=== PATIENT | male | born 1940 | race Caucasian/White ===

== ENCOUNTER 2016-11-13 12:02 | Inpatient (IN) | payer OTHER ==
[2016-11-05 14:24] LABS: ANION GAP 10 mEq/L (8-16); CALCIUM 10.9 mg/dL (8.5-10.4); CARBON DIOXIDE 25 mEq/l (22-31); CHLORIDE 104 mEq/L (97-110); GLOMERULAR FILTRATION RATE > 60; GLUCOSE 153 mg/dL (70-100); SODIUM 139 mEq/L (134-144)
[~2016-11-13 12:02] MED LIST: ROPIVACAINE 0.2% 80 MG, EPINEPHrine 0.2 MG, KETOROLAC TROMETHAMINE 30 MG in BAG 0 ML IU ONE; TRANEXAMIC ACID 3,000 MG in NS 50 ML IRR ONE; TRANEXAMIC ACID 3,000 MG/50 ML BAG IRR ONE; VANCOMYCIN 1 GM VIAL ONE
[2016-11-13] MEDS ORDERED: FAMOTIDINE 20 MG TAB PO ONE (12:34)
[2016-11-13] MEDS ORDERED: DEXAMETHASONE 4 MG/ML VIAL IVP ONE (12:34)
[2016-11-13] MEDS ORDERED: ACETAMINOPHEN 325 MG TAB PO ONE (12:34)
[2016-11-13] MEDS ORDERED: ceFAZolin 2 GM/DEXTROSE 100 ML IV ONE (12:34)
[2016-11-13] MEDS ORDERED: LR 1,000 ML IV ONE (12:42)
--- NOTE | 2016-11-13 13:46 | PDHPUP ---
History & Physical Update H&P update statement: This history and physical update is based on an assessment of the patient which was completed after admission or registration (within 24 hours), but prior to the surgery/procedure. H&P update: H&P reviewed & patient examined, no change in patient's condition since H&P completed
[2016-11-13] MEDS ORDERED: PROPOFOL/EMULSION 500 MG/50 ML BOTTLE IV ONE ×2 (14:26→15:33)
[2016-11-13] MEDS ORDERED: MIDAZOLAM 2 MG/2 ML VIAL ONE (14:26)
[2016-11-13] MEDS ORDERED: DEXAMETHASONE 4 MG/ML VIAL ONE ×2 (14:27)
[2016-11-13] MEDS ORDERED: METOCLOPRAMIDE 10 MG/2 ML VIAL ONE (14:27)
[2016-11-13] MEDS ORDERED: LIDOCAINE 2% 100 MG/5 ML SYR ONE (14:27)
--- NOTE | 2016-11-13 14:33 | PDANEPAE ---
ANE Past Medical History - Cardiovascular History Hx Hypertension: Yes Hx Arrhythmias: No Hx Chest Pain: No Hx Coronary Artery / Peripheral Vascular Disease: No Hx CHF / Valvular Disease: No Hx Palpitations: No Cardiovascular History Comment: pcp monitors bp medications. high chol. family condition that predisposes him to blood clots - Pulmonary History Hx COPD: No Hx Asthma/Reactive Airway Disease: No Hx Recent Upper Respiratory Infection: No Hx Oxygen in Use at Home: No Hx Sleep Apnea: No Sleep Apnea Screening Result - Last Documented: Positive Pulmonary History Comment: eva triggers - Neurologic History Hx Cerebrovascular Accident: No Hx Seizures: No Hx Dementia: No - Endocrine History Hx Diabetes: Yes Endocrine History Comment: type 2 - Renal History Hx Renal Disorders: Yes Renal History Comment: bph. hx of kidney stones - Liver History Hx Hepatic Disorders: No - Neurological & Psychiatric Hx Hx Neurological and Psychiatric Disorders: No - Cancer History Hx Cancer: Yes Cancer History Comment: 2011 breast ca with mastectomy. 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 eye surgery for blinking too much. 1964 surgery on righy knee cartiledge clean up ANE Review of Systems - Exercise capacity METS (RN): 4 METS ANE Patient History - Allergies Allergies/Adverse Reactions: No Known Allergies Allergy (Verified 10/31/16 10:06) - Home Medications Home Medications: Atorvastatin Calcium [Lipitor 20 mg (*)] 20 mg PO DAILY 01/30/12 [Last Taken 03:00] metFORMIN HCL [Glucophage 500 mg (*)] 500 mg PO DAILY 01/30/12 [Last Taken 11/11] Aspirin [Aspirin 325 mg (*)] 162.5 mg PO DAILY 10/24/16 [Last Taken 3 Weeks Ago] Lisinopril [Zestril 10 mg (*)] 10 mg PO Q2D@10/24/16 [Last Taken 11/11/16] Multivitamins [Multivitamin (*)] 1 each PO DAILY 10/24/16 [Last Taken 11/06/16] Tamoxifen Citrate 20 mg PO DAILY 10/24/16 [Last Taken 11/13/16 03:00] - NPO status NPO Since - Liquids (Date): 11/13/16 NPO Since - Liquids (Time): 07:00 NPO Since - Solids (Date): 11/12/16 NPO Since - Solids (Time): 19:00 - Smoking Hx Smoking Status: Never smoked - Family Anes Hx Family Hx Anesthesia Complications: none ANE Labs/Vital Signs - Labs Result Diagrams: 11/05/16 13:32 - Vital Signs Blood Pressure: 158/93 Heart Rate: 79 Respiratory Rate: 16 O2 Sat (%): 92 Height: 180.34 cm Weight: 88.451 kg ANE Physical Exam - Airway Neck exam: FROM Mallampati Score: Class 3 Mouth exam: normal dental/mouth exam - Pulmonary Pulmonary: no respiratory distress - Cardiovascular Cardiovascular: regular rate and rhythym - ASA Status ASA Status: II ANE Anesthesia Plan Anesthesia Plan: spinal Regional Anesthesia: adductor canal FNB
--- NOTE | 2016-11-13 16:14 | POSTOPPROG ---
Post Op Note Date of Operation: 11/13/16 Surgeon: Serg Barnett X Ray Examiner Of Aircraft: Derek Arita Anesthesiologist: Christina Anesthesia: Spinal Pre-op Diagnosis: R knee djd Post-op Diagnosis: same Indication: pain Procedure: R TKA Findings: DJD knee Inf/Abcess present in the surg proc area at time of surgery?: No EBL: 50-100
[2016-11-13] MEDS ORDERED: ONDANSETRON 4 MG/2 ML VIAL IVP PRN ×2 (16:21→16:43)
[2016-11-13] MEDS ORDERED: PROMETHAZINE HCL 25 MG SUPPR PR PRN (16:21)
[2016-11-13] MEDS ORDERED: WARFARIN SODIUM 5 MG TAB PO ONE (16:21)
[2016-11-13] MEDS ORDERED: POLYETHYLENE GLYCOL 3350 17 GM PKT PO PRN (16:21)
[2016-11-13] MEDS ORDERED: PROMETHAZINE HCL 25 MG/ML INJ IVP PRN (16:21)
[2016-11-13] MEDS ORDERED: PHARMACY PAIN CONSULT 1 EA MISC PRN (16:21)
[2016-11-13] MEDS ORDERED: DIPHENOXYLATE/ATROPINE LOMOTIL 1 TAB PO PRN (16:21)
[2016-11-13] MEDS ORDERED: ONDANSETRON DISINTEGRATING 4 MG TAB PO PRN (16:21)
[2016-11-13] MEDS ORDERED: TEMAZEPAM 15 MG CAP PO PRN (16:21)
[2016-11-13] MEDS ORDERED: MAGNESIUM HYDROXIDE 30 ML UDCUP PO PRN (16:21)
[2016-11-13] MEDS ORDERED: BISACODYL 10 MG SUPP PR PRN (16:21)
[2016-11-13] MEDS ORDERED: diphenhydrAMINE 25 MG CAP PO PRN (16:21)
[2016-11-13] MEDS ORDERED: CYCLOBENZAPRINE 10 MG TAB PO PRN (16:21)
[2016-11-13] MEDS ORDERED: LACTULOSE 20 GM/30 ML UDCUP PO PRN (16:21)
[2016-11-13] MEDS ORDERED: METOCLOPRAMIDE 10 MG/2 ML VIAL IVP PRN (16:21)
[2016-11-13] MEDS ORDERED: HYDROCODONE/APAP 5/325 TAB PO PRN (16:43)
[2016-11-13] MEDS ORDERED: LR 500 ML IV PRN (16:43)
[2016-11-13] MEDS ORDERED: fentaNYL 100 MCG/2 ML INJ IVP PRN (16:43)
[2016-11-13] MEDS ORDERED: MEPERIDINE 25 MG/ML SYR IVP PRN (16:43)
[2016-11-13] MEDS ORDERED: NALOXONE HCL 0.4 MG/ML INJ IVP PRN (16:43)
--- NOTE | 2016-11-13 16:44 | POSTANESTH ---
Post Anesthetic Evaluation Cardiovascular Status: Normal, Stable Respiratory Status: Normal, Stable Level of Consciousness/Mental Status: Can Participate in Eval Pain Control: Adequate, Prn Tx Ordered Nausea/Vomiting Control: Adequate, Prn Tx Ordered Complications Possibly Related to Anesthesia: None Noted
[2016-11-13] MEDS: LR 1,000 ML IV SCH (17:31)
[2016-11-13] MEDS: ACETAMINOPHEN 325 MG TAB PO SCH ×2 (17:31→23:34)
[2016-11-13] MEDS: oxyCODONE IR 5 MG TAB PO PRN (21:05)
[2016-11-13] MEDS: FAMOTIDINE 20 MG TAB PO SCH (21:05)
[2016-11-13] MEDS: SENNOSIDES/DOCUSATE SODIUM TAB PO SCH (21:05)
[2016-11-13] MEDS: ceFAZolin 2 GM/DEXTROSE 100 ML IV SCH (21:06)
[2016-11-14] MEDS: LR 1,000 ML IV SCH (01:59)
[2016-11-14] MEDS: ACETAMINOPHEN 325 MG TAB PO SCH ×2 (05:11→11:55)
[2016-11-14] MEDS: ceFAZolin 2 GM/DEXTROSE 100 ML IV SCH (05:11)
[2016-11-14 05:18] LABS: HEMATOCRIT 36.6 % (40.0-51.0); HEMOGLOBIN 12.4 g/dL (13.7-17.5)
[2016-11-14 05:35] LABS: INR 1.41 (0.83-1.16); PROTIME(PATIENT) 17.2 SEC (12.0-15.0)
--- NOTE | 2016-11-14 08:08 | SOAPPROG ---
SOAP Progress Note Assessment/Plan: Assessment: Patient is doing well POD 1 s/p R TKA Pain management: pain is well controlled on oral pain meds. VTE ppx: recommend lovenox x 4 days with bridge to coumadin therapy for 3 weeks , cont ANITA and SCDs Anemia: level is expected initially postop. Asymptomatic. Continue to monitor D/c planning: d/c to home today pending release from PT Plan: 11/14/16 08:07 Objective: Vital Signs Temp Pulse Resp BP Pulse Ox 36.9 C 64 16 102/55 L 97 11/14/16 04:00 11/14/16 04:00 11/14/16 04:00 11/14/16 04:00 11/14/16 04:00 Laboratory Results 11/14/16 04:53 11/05/16 13:32 11/13/16 11/14/16 11/15/16 05:59 05:59 05:59 Intake Total 2016 Output Total 450 Balance 1566 PT 17.2 SEC (12.0-15.0) H 11/14/16 04:53 INR 1.41 (0.83-1.16) H 11/14/16 04:53 ICD10 Worksheet Patient Problems: Problems Problem Status Onset Osteoarthritis of right knee Acute - ICD10 Problem Qualifiers (1) Osteoarthritis of right knee Qualifiers: Osteoarthritis type: O
[2016-11-14 08:09] VITALS: BP 142/77; PULSE 56; RESP 14; TEMP 97.6; O2SAT 95
[2016-11-14] MEDS ORDERED: metFORMIN HCL 500 MG TAB PO SCH (09:00)
[2016-11-14] MEDS ORDERED: TAMOXIFEN CITRATE 10 MG TAB PO SCH (09:00)
[2016-11-14] MEDS ORDERED: ATORVASTATIN CALCIUM 20 MG TAB PO SCH (09:00)
[2016-11-14] MEDS ORDERED: ENOXAPARIN 40 MG/0.4 ML SYR SC SCH ×2 (09:00)
[2016-11-14] MEDS: FAMOTIDINE 20 MG TAB PO SCH (09:05)
[2016-11-14] MEDS: SENNOSIDES/DOCUSATE SODIUM TAB PO SCH (09:06)
--- NOTE | 2016-11-14 09:22 | GOP ---
[f rep st] OPERATIVE REPORT DATE OF OPERATION: 11/13/2016 SURGEON: Stefany Barnett MD SNAGGER: Sebastián Arita PA-C ANESTHESIA: Spinal. PREOPERATIVE DIAGNOSIS: Right knee osteoarthritis. POSTOPERATIVE DIAGNOSIS: Right knee osteoarthritis. PROCEDURE PERFORMED: Right total knee arthroplasty. FINDINGS/PATHOLOGY: Severe tricompartmental osteoarthritis. ESTIMATED BLOOD LOSS: 30 cc. INDICATIONS: This is a 76-year-old male with severe and progressive pain and deformity of the right knee unresponsive to conservative care. Risks and benefits of the surgical intervention were explained in detail. DESCRIPTION OF PROCEDURE: The patient was brought to the operative room and placed on the table in the supine position. Spinal anesthesia was induced without difficulty. A pneumatic tourniquet was applied about the right proximal thigh, and the leg was prepped and draped in a sterile fashion. The legholder was applied. After exsanguination by elevation the tourniquet was inflated to 250 mm of mercury. Incision was made anterior medial from the tibial tuberosity to a point 2 cm proximal to the superior pole of the patella. Medial parapatellar arthrotomy was carried out from the superior pole of the patella and posteriorly in line with the fibers of the Type 2 VMO. The medial collateral ligament was elevated and the infrapatellar fat pad was resected. The patella was everted and the articular surface was excised. A 38 mm patellar button was placed. The distal femoral guide hole was drilled and the 6- degree alignment cary was placed. A 10 mm distal femoral cut was made without difficulty. Attention was turned to the tibia and a standard 9 mm cut based on the lateral tibial condyle was performed. The tibial articular surface was excised without difficulty. Attention was turned back to the femur and a size 6 Triathlon femoral cutting block was positioned. Anterior, posterior, and chamfer cuts were made, followed by the intercondylar box cut. The knee was extended and the remnants of the medial and lateral meniscus were excised. The posterior capsule was injected with ropivacaine, epinephrine and Toradol. A size 6 MIS mini-keel tibial tray was positioned. Trial reduction was then carried out. There was excellent range of motion, alignment, and stability using the 9 mm polyethylene. All trials were then removed. The joint was thoroughly irrigated and carefully dried. Two packages of cement and 2 grams of vancomycin were mixed in the vacuum mixer and placed on the fixation surfaces of all surfaces of the components. The components were implanted and all excess cement was thoroughly removed. The permanent 9 mm polyethylene was placed without difficulty. The tourniquet was deflated and all bleeders were coagulated. The wound was thoroughly irrigated and closed using interrupted sutures of 2-0 Vicryl for the joint capsule. The subcu was closed with 3-0 Vicryl and the skin with 4-0 Monocryl. Dermabond and Steri-Strips were applied followed by a compressive dressing. The patient was then moved from the operating room to the recovery room in good condition, having tolerated the procedure well. /[id number]/MODL MTDD
[2016-11-14] MEDS: oxyCODONE IR 5 MG TAB PO PRN (11:55)
[2016-11-14] MEDS ORDERED: WARFARIN SODIUM 5 MG TAB PO SCH (16:00)
[2016-11-15] MEDS ORDERED: LISINOPRIL 10 MG TAB PO SCH (09:00)
--- NOTE | 2016-11-15 14:21 | GDS ---
[f rep st] DISCHARGE SUMMARY ADMIT DATE: 11/13/2016 DISCHARGE DATE: 11/14/2016 ADMISSION DIAGNOSIS: Right knee osteoarthritis. DISCHARGE DIAGNOSES: Right knee osteoarthritis. OPERATION PERFORMED: Right total knee arthroplasty. VTE PROPHYLAXIS: Lovenox x 4 days, and Coumadin x 21 days. BRIEF DESCRIPTION OF HOSPITAL STAY: Patient was admitted for an elective joint arthroplasty. The pa tient tolerated the procedure well and has passed physical therapy. The patient was given appropriat e antibiotic prophylaxis and venous thromboembolism prophylaxis. The patient's pain was well control led on oral pain medication. The patient was holding down food and had urinated. Decision was made to discharge the patient. The patient was given post-operative prescriptions pre-operatively. PLAN: Please follow up with Dr. Barnett as scheduled. /[id number]/MODL
== END 2016-11-14 13:33 | disposition home or self-care (01) | DRG 470 ==
LOC: F3N 12:02 → EDSTATUS 14:15 → F3N 17:07
PROVIDERS: ADMIT Orthopaedic Surgery; ATTEND Orthopaedic Surgery
PROC: 0SRC0J9 Replacement of Right Knee Joint with Synthetic Substitute, Cemented, Open Approach (ICD-10-PCS; principal; 2016-11-13 14:00)
DX: M17.11 Unilateral primary osteoarthritis, right knee (principal); I10 Essential (primary) hypertension; E11.9 Type 2 diabetes mellitus without complications; N40.0 Benign prostatic hyperplasia without lower urinary tract symptoms; Z85.3 Personal history of malignant neoplasm of breast; Z85.820 Personal history of malignant melanoma of skin
CPT/HCPCS: 97116-GP; 97161-GP; 97165-GO; C1713; G8978-GP-CI; G8979-GP-CI; G8980-GP-CI; G8987-GO-CI; G8988-GO-CI; G8989-GO-CI; J0171; J0690; J1100; J1650; J1885; J2001; J2250; J2704; J2765; J2795; J3370

== ENCOUNTER → 2017-09-16 | Outpatient (CLI) | payer OTHER | LOC: FIMAGING 10:00 | PROVIDERS: ATTEND Internal Medicine Hematology & Oncology | DX: Z13.820 Encounter for screening for osteoporosis (principal); M85.89 Other specified disorders of bone density and structure, multiple sites; E87.5 Hyperkalemia; M79.602 Pain in left arm; Z85.3 Personal history of malignant neoplasm of breast ==